=== PATIENT | male | born 1990 | race American Indian/Alaskan Native ===

== ENCOUNTER 2020-12-19 14:29 | Emergency (ER) | payer MEDICAID ==
--- NOTE | 2020-12-19 14:52 | Event Note ---
ED Screening Note Date of service: 12/19/20 Time: 14:51 ED Screening Note: Patient has a history of HIV and has been noncompliant with his meds since the beginning of this month. He presents to the ER today with complaints of generalized body aches, generalized weakness, diarrhea, cough, shortness of breath and chills off and on for the past 2 weeks but has been getting worse. Patient vital signs show that he is tachycardic with a heart rate of 149 He appears ill, and uncomfortable and pale This initial assessment/diagnostic orders/clinical plan/treatment(s) is/are subject to change based on patients health status, clinical progression and re- assessment by fellow clinical providers in the ED. Further treatment and workup at subsequent clinical providers discretion. Patient/guardian urged not to elope from the ED as their condition may be serious if not clinically assessed and ma naged. Initial orders include: labs including blood cultures, chest x-ray, EKG and lactic acid
--- NOTE | 2020-12-19 15:23 | XRay Report ---
CHEST 1 VIEW 12/19/2020 3:00 PM INDICATION / CLINICAL INFORMATION: Shortness of breath. COMPARISON: None available. FINDINGS: SUPPORT DEVICES: None. HEART / MEDIASTINUM: No significant abnormality. LUNGS / PLEURA: No significant pulmonary or pleural abnormality. No pneumothorax. ADDITIONAL FINDINGS: No significant additional findings. IMPRESSION: No acute cardiopulmonary abnormality. Signer Name: Tylor Sandoval MD Signed: 12/19/2020 3:19 PM Workstation Name: [id number]
[2020-12-19] MEDS ORDERED: MORPHINE 4 MG/1 ML INJ ONE (16:00)
[2020-12-19] MEDS ORDERED: SODIUM CHLORIDE 0.9% 1000 ML 0 ML ONE (16:00)
[2020-12-19] MEDS ORDERED: ONDANSETRON 4 MG/2 ML INJ ONE (16:01)
[2020-12-19 16:03] LABS: Alanine Aminotransferase 41 units/L (7-56); Albumin 2.9 g/dL (3.9-5); BUN/Creatinine Ratio 23; Blood Urea Nitrogen 37 mg/dL (9-20); Calcium 9.1 mg/dL (8.4-10.2); Hemolysis Index 3
[2020-12-19 16:19] LABS: Hemoglobin 13.6 gm/dl (11.8-15.2); Mean Corpuscular HGB Conc 34 % (32-34); Mean Corpuscular Volume 97 fl (84-94); Platelet Count 302 K/mm3 (140-440); Red Blood Count 4.12 M/mm3 (3.65-5.03); Red Cell Distribution Width 14.1 % (13.2-15.2)
[2020-12-19] MEDS ORDERED: SODIUM CHLORIDE 0.9% 1000 ML 1,000 ML IV ONE ×2 (16:24→18:48)
--- NOTE | 2020-12-19 17:07 | Emergency Department Report ---
ED ENT HPI - General Chief complaint: Weakness Stated complaint: GENERAL BODY PAIN Time Seen by Provider: 12/19/20 16:09 Source: patient Mode of arrival: Wheelchair Limitations: No Limitations - History of Present Illness Initial comments: 30-year-old male, history of HIV and asthma, presents to ED with complaint of mouth and gum pain x2 weeks. Patient states all of his teeth hurt and all of his gums are swollen; patient states this started Easter weekend. Patient states he called his infectious disease physician at [facility] who told him to come in to the office, however he has yet to go there. Patient states he could not find a ride, so he decided to call EMS to bring him to the ER today. Patient states he is been unable to take his HIV medications for the last 2 weeks because of the pain to his teeth and gums. Patient denies any difficulty swallowing. Patient denies sore throat. Patient denies fever. MD complaint: other -: week(s) (2) Location: other (all teeth and gums) Severity: moderate Quality: aching Consistency: constant Improves with: none Worsens with: eating Context- Dental: poor dental care (last dentist appt more than 5 yrs ago) - Related Data Previous Rx's Medication Instructions Recorded Last Taken Type Chlorhexidine Mouthwash [Peridex] 15 ml MM BID #1 bottle 12/19/20 Unknown Rx Clindamycin [Clindamycin CAP] 300 mg PO Q8H #21 cap 12/19/20 Unknown Rx Allergies Allergy/AdvReac Type Severity Reaction Status Date / Time No Known Allergies Allergy Unverified 12/19/20 14:49 ED Dental HPI - General Chief complaint: Weakness Stated complaint: GENERAL BODY PAIN Time Seen by Provider: 12/19/20 16:09 Source: patient Mode of arrival: Wheelchair Limitations: No Limitations - Related Data Previous Rx's Medication Instructions Recorded Last Taken Type Chlorhexidine Mouthwash [Peridex] 15 ml MM BID #1 bottle 12/19/20 Unknown Rx Clindamycin [Clindamycin CAP] 300 mg PO Q8H #21 cap 12/19/20 Unknown Rx Allergies Allergy/AdvReac Type Severity Reaction Status Date / Time No Known Allergies Allergy Unverified 12/19/20 14:49 ED Review of Systems ROS: Stated complaint: GENERAL BODY PAIN Other details as noted in HPI Comment: All other systems reviewed and negative Constitutional: chills. denies: fever ENT: dental pain. denies: throat pain Respiratory: cough, shortness of breath Gastrointestinal: diarrhea Musculoskeletal: myalgia ED Past Medical Hx - Past Medical History Previous Medical History?: Yes Hx HIV: Yes - Medications Home Medications: Home Medications Medication Instructions Recorded Confirmed Last Taken Type Chlorhexidine Mouthwash [Peridex] 15 ml MM BID #1 bottle 12/19/20 Unknown Rx Clindamycin [Clindamycin CAP] 300 mg PO Q8H #21 cap 12/19/20 Unknown Rx ED Physical Exam - General Limitations: No Limitations General appearance: alert, in no apparent distress - Head Head exam: Present: atraumatic, normocephalic - Eye Eye exam: Present: normal appearance, EOMI - ENT ENT exam: Present: other (gingiva appear to be receding from the teeth; gingiva slightly swollen; no bleeding present; no white plaque on tongue; breath in foul-smelling ) - Respiratory Respiratory exam: Present: normal lung sounds bilaterally. Absent: respiratory distress - Cardiovascular Cardiovascular Exam: Present: normal rhythm, tachycardia - GI/Abdominal GI/Abdominal exam: Present: soft. Absent: distended, tenderness - Extremities Exam Extremities exam: Present: normal inspection - Neurological Exam Neurological exam: Present: alert, oriented X3 - Psychiatric Psychiatric exam: Present: normal affect, normal mood - Skin Skin exam: Present: warm, dry, intact, normal color ED Course Vital Signs 12/19/20 12/19/20 12/19/20 14:49 17:51 18:00 Temperature 98.2 F Pulse Rate 149 H 116 H Respiratory 20 27 H Rate Blood Pressure 129/89 Blood Pressure 118/83 [Right] O2 Sat by Pulse 100 100 100 Oximetry 12/19/20 12/19/20 12/19/20 18:30 19:00 19:30 Temperature Pulse Rate 129 H 120 H 115 H Respiratory 22 18 27 H Rate Blood Pressure 129/89 151/109 129/89 Blood Pressure [Right] O2 Sat by Pulse 100 99 98 Oximetry 12/19/20 12/19/20 12/19/20 20:01 20:14 21:01 Temperature 101.8 F H 101.5 F H Pulse Rate 120 H 114 H Respiratory Rate Blood Pressure 124/78 Blood Pressure [Right] O2 Sat by Pulse Oximetry 12/19/20 22:22 Temperature 99.0 F Pulse Rate 96 H Respiratory 18 Rate Blood Pressure Blood Pressure [Right] O2 Sat by Pulse 99 Oximetry - Reevaluation(s) Reevaluation #1: 12/19/20 17:07 I read the triage note in which patient reported to triage nurse and midlevel that he is here with body aches, weakness, diarrhea, cough, and chills for 2 weeks. Patient did not mention any of these things to me. States he was only here because of his teeth and gum pain. When I questioned patient about these other symptoms, patient states he did not tell me about any of those things because he here because of his mouth issues. ED Medical Decision Making - Lab Data Result diagrams: 12/19/20 15:19 12/19/20 15:19 - Radiology Data Radiology results: report reviewed, image reviewed - Medical Decision Making 30-year-old male presents to ED with complaint of pain and soreness to all of his teeth and gums x2 weeks. Patient apparently also reported body aches, weakness, diarrhea. Patient initially tachycardic but afebrile. Patient later spiked a fever here in the ED. lactic acid normal. He was given Motrin. Labs show evidence of some mild acute renal insufficiency. Patient was given 2 L bolus of saline due to this and along with his tachycardia. Patient originally stated that he has been unable to take his HIV medications secondary to pain in his teeth and gums. Patient denied any difficulty swallowing or painful swallowing or sore throat. No evidence of oral thrush on exam. Patient subsequently was proven able to tolerate p.o. by taking p.o. Lorida. After work, patient requested something to eat. He was given a meal tray and ate it in its entirety. After eating the meal tray, patient also requested something addit ional to eat. He was given juice and crackers which he also ate. Fever and tachycardia resolved. Patient will be discharged home at this time. He has been urged to follow-up with a dentist and his infectious disease physicians. Patient will be given prescription for clindamycin and Peridex for treatment of trench mouth. Patient has been advised to restart his HIV medications. He has also been advised to obtain outpatient COVID-19 testing due to his report of viral symptoms. Critical care attestation.: If time is entered above; I have spent that time in minutes in the direct care of this critically ill patient, excluding procedure time. ED Disposition Clinical Impression: Trench mouth, Dehydration, Fever Disposition: DC- TO HOME OR SELFCARE Is pt being admited?: No Condition: Stable Instructions: Dehydration, Adult, [id number], Trench Mouth, Fever, Adult, [id number] Additional Instructions: Outpatient COVID-19 testing is recommended. Quarantine as needed. Prescriptions: Clindamycin [Clindamycin CAP] 300 mg PO Q8H #21 cap Chlorhexidine Mouthwash [Peridex] 15 ml MM BID #1 bottle Referrals: [facility] [Other] - 3-5 Days PRIMARY CARE, [Referring] - 3-5 Days Time of Disposition: 22:30
[2020-12-19 17:23] LABS: Anisocytosis Few; Giant Platelets Rare; Total Cells Counted 100
[2020-12-19] MEDS ORDERED: HYDROcodone/ACETAMINOPHEN 5-325 MG TAB PO ONE (18:48)
[2020-12-19 20:02] VITALS: BP 124/78
[2020-12-19] MEDS ORDERED: IBUPROFEN 800 MG TAB PO ONE (20:14)
[2020-12-19 20:44] LABS: Bacteria,Urine 1+ /HPF (Negative); Bilirubin,Urine NEG (Negative); Blood,Urine NEG (Negative); Color,Urine Yellow (Yellow); Mucus,Urine FEW /HPF
[2020-12-19 20:45] LABS: Protein,Urine >500 mg/dL (Negative)
--- NOTE | 2020-12-21 13:38 | Electrocardiograph Report ---
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
== END 2020-12-19 22:51 | disposition home or self-care (01) ==
LOC: ED 14:29
DX: E86.0 Dehydration (principal); A69.1 Other Vincent's infections; R50.9 Fever, unspecified; Z79.2 Long term (current) use of antibiotics; Z79.899 Other long term (current) drug therapy; Z21 Asymptomatic human immunodeficiency virus [HIV] infection status
CPT/HCPCS: 36415; 71045; 80053; 81001; 82140; 83690; 83735; 84484; 85007; 85025; 87040; 93005; 96360; 96361; 99284; J2270; J7030; J2405

== ENCOUNTER 2021-06-21 08:31 | Inpatient (IN) | payer MEDICAID ==
[2021-06-21] MEDS ORDERED: ROCURONIUM 50 MG/5 ML INJ IV ONE (08:36)
[2021-06-21] MEDS ORDERED: ETOMIDATE 20 MG/10 ML INJ IV ONE (08:36)
[2021-06-21] MEDS ORDERED: cefTRIAXone/NS 2 GM/100 ML 2 GM/100 ML BAG IV ONE (09:05)
[2021-06-21] MEDS ORDERED: SODIUM CHLORIDE 0.9% 1000 ML IV SOLN IV ONE (09:05)
[2021-06-21] MEDS ORDERED: methylPREDNISolone Sod Succinate 125 MG/2 ML INJ IV ONE (09:07)
[2021-06-21] MEDS ORDERED: NORepinephrine/NS 4 MG-250 ML 4 MG/250 ML BAG IV ONE (09:10)
[2021-06-21] MEDS ORDERED: DOPamine/D5W 800 MG/250 ML 800 MG/250 ML BAG IV ONE ×2 (09:10→09:16)
[2021-06-21 09:11] LABS: ABG Base Excess -18.2 mmol/L (-2.0-3.0); ABG Methemoglobin 0.6 % (0.0-1.5); ABG PCO2 63.3 mm Hg; ABG PO2 99.9 mm Hg (80.0-90.0)
--- NOTE | 2021-06-21 09:12 | Emergency Department Report ---
ED Altered Mental Status HPI - General Chief Complaint: Altered Mental Status Stated Complaint: STROKE Time Seen by Provider: 06/21/21 09:04 Source: EMS Mode of arrival: Stretcher Limitations: Altered Mental Status - History of Present Illness Initial Comments: Patient is 30 years old male with history of HIV possibly AIDS. 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 Patient brought from home via EMS for evaluation of altered mental status since yesterday. EMS stated that family stated that he was doing well until yesterday morning when he became more unresponsive and confused. Family denied any fever or chills. Upon arrival to the ER patient with agonal breathing, GCS of 3.no gag reflex. Patient is tachycardic with a blood pressure of 60/40. Patient immediately intubated by me using a glidscope. I immediately placed a right femoral central line for resuscitation as patient has a difficult access also. Sepsis protocol immediately initiated and patient received 30 mL/kg of normal saline. Given patient history of meningitis patient received Rocephin, vancomycin, fluconazole and acyclovir. Patient also received steroid. MD Complaint: altered mental status, decreased responsiveness Severity: severe Consistency of Symptoms: getting worse Context: history of similar presen - Related Data Previous Rx's Medication Instructions Recorded Last Taken Type Chlorhexidine Mouthwash [Peridex] 15 ml MM BID #1 bottle 12/19/20 Unknown Rx Clindamycin [Clindamycin CAP] 300 mg PO Q8H #21 cap 12/19/20 Unknown Rx Allergies Allergy/AdvReac Type Severity Reaction Status Date / Time No Known Allergies Allergy Unverified 12/19/20 14:49 ED Review of Systems ROS: Stated complaint: STROKE Other details as noted in HPI Comment: Unobtainable due to pts medical conditions ED Past Medical Hx - Past Medical History Hx CVA: Yes Hx HIV: Yes Additional medical history: fungal meningitis - Social History Smoking Status: Current Every Day Smoker Substance Use Type: Alcohol - Medications Home Medications: Home Medications Medication Instructions Recorded Confirmed Last Taken Type Chlorhexidine Mouthwash [Peridex] 15 ml MM BID #1 bottle 12/19/20 Unknown Rx Clindamycin [Clindamycin CAP] 300 mg PO Q8H #21 cap 12/19/20 Unknown Rx ED Physical Exam - General Limitations: Altered Mental Status General appearance: obtunded - Head Head exam: Present: atraumatic, normal inspection - Eye Pupils: Present: miosis - ENT ENT exam: Present: mucous membranes dry - Neck Neck exam: Present: normal inspection. Absent: tenderness, meningismus - Respiratory Respiratory exam: Present: normal lung sounds bilaterally - Cardiovascular Cardiovascular Exam: Present: tachycardia - GI/Abdominal GI/Abdominal exam: Present: soft. Absent: distended, tenderness - Neurological Exam Neurological exam: Present: altered - Skin Skin exam: Present: warm, dry, normal color - Assessment Assessment Interval: Baseline - Level of Consciousness 1a. Level of Consciousness: coma/unresponsive - LOC Questions 1b. LOC Questions: answers no questions correctly - LOC Command 1c. LOC Commands: performs no tasks correctly - Best Gaze 2. Best Gaze: forced deviation - Visual 3. Visual: no visual loss - Facial Palsy 4. Facial Palsy: normal symmetrical movement - Motor Arm 5a. Motor Arm Left: no gravity effort 5b. Motor Arm Right: no gravity effort - Motor Leg 6a. Motor Leg Left: no gravity effort 6b. Motor Leg Right: no gravity effort - Limb Ataxia 7. Limb Ataxia: absent - Sensory 8. Sensory: coma/unresponsive - Best Language 9. Best Language: coma/unresponsive - Dysarthria 10. Dysarthria: intubated or other barrier - Extinction and Inattention 11. Extinction/Inattention: no abnormality - Scoring Total Score: 26 Stroke Severity: Severe Stroke ED Course Vital Signs 06/21/21 06/21/21 09:34 12:10 Pulse Rate 140 H 138 H Respiratory 3 L 0 L Rate O2 Sat by Pulse 98 96 Oximetry - Reevaluation(s) Reevaluation #1: 06/21/21 10:25 Patient blood pressure improved with normal saline and dopamine and Levophed. Reevaluation #2: 06/21/21 11:32 Patient remained critical however his blood pressure improved. I discussed the patient with his mother, informed that patient condition is very critical. 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 She also added that he was doing well until yesterday morning when he became more confused. Reevaluation #3: 06/21/21 13:16 I was called to the patient room. Nurse advised patient has no pulse. ACLS protocol immediately initiated. Patient received epinephrine, sodium bicarbonate, dextrose. After several rounds of CPR patient rhythm change from asystole to ventricular fibrillation. Patient received 300 J and a 360 J and amiodarone 300 mg IV. Patient rhythm returned to asystole. Unfortunately patient remained in asystole. Patient pronounced at 1:09 PM. For further information please refer to code sheets. - Central Line Placement Right Femoral Consent Obtained: emergent situation Time Out Performed: Yes Patient Placed on Monitor/Pulse Ox: Yes MD Prep: mask, gown, gloves Central Line Prep: Povidone-Iodine 1%, Chlorhexidine scrub, sterile drapes appli ed Local Anesthesia Used: Lidocaine 2% Central Line Lumen Inserted: triple Reason for Insertion: Volume Resuscitation Central Line Position: good blood return, all ports aspirated, flus, sutured in place with 2-0 Dressing Applied: Tegaderm, sterile gauze/tape Patient Tolerated Procedure: well, no complications Complications: none - Intubation Time Out Performed: Yes Sedative: Etomidate Laryngoscope: Susan Size: 4 ET Tube Size: 7.5 Tube Secured Location: teeth Tube Placement Confirmation: visualized tube passing t, equal breath sounds bilat, no breath sounds over epi, confirmation by capnometr Patient Tolerated Procedure: well, no complications Intubation Complications: none - Lumbar Puncture Consent Obtained: emergent situation Time Out Performed: Yes Indication for Procedure: change in mental status Patient Position: left lateral decubitus Skin Prep: Povidone-Iodine 1% Local Anesthetic Used: Lidocaine 1% Spinal Needle Gauge: 20G Interspace Used: L4-L5 Fluid Initially Obtained: clear Complications: none Patient Tolerated Procedure: well, no complications - Lab Data Result diagrams: 06/21/21 09:52 06/21/21 09:52 Lab Results 06/21/21 06/21/21 06/21/21 Range/Units 08:50 09:52 09:52 WBC 2.3 L (4.5-11.0) K/mm3 RBC 2.68 L (3.65-5.03) M/mm3 Hgb 8.9 L (11.8-15.2) gm/dl Hct 26.4 L (35.5-45.6) % MCV 98 H (84-94) fl MCH 33 H (28-32) pg MCHC 34 (32-34) % RDW 15.0 (13.2-15.2) % Seg Neutrophils % Route Delivery Driver PT (12.2-14.9) Sec. INR (0.87-1.13) APTT (24.2-36.6) Sec. ABG pH 6.963 L* (7.350-7.450) pH Units ABG pCO2 63.3 mm Hg ABG pO2 99.9 H (80.0-90.0) mm Hg ABG HCO3 14.0 L (20.0-26.0) mmol/L ABG O2 Saturation 92.0 L (95.0-99.0) % ABG O2 Content 16.8 (0.0-44) ABG Base Excess -18.2 L (-2.0-3.0) mmol/L ABG Hemoglobin 13.1 L (14.0-18.0) gm/dl ABG Carboxyhemoglobin 1.3 (0.0-5.0) % ABG Methemoglobin 0.6 (0.0-1.5) % Oxyhemoglobin 90.3 L (95.0-99.0) % FiO2 10 % Sodium 139 (137-145) mmol/L Potassium 4.6 (3.6-5.0) mmol/L Chloride 104.6 (98-107) mmol/L Carbon Dioxide 13 L (22-30) mmol/L Anion Gap 26 mmol/L BUN 57 H (9-20) mg/dL Creatinine 4.0 H (0.8-1.3) mg/dL Estimated GFR 21 ml/min BUN/Creatinine Ratio 14 % Glucose 124 H (75-100) mg/dL Lactic Acid (0.7-2.0) mmol/L Calcium 6.5 L (8.4-10.2) mg/dL Total Bilirubin (0.1-1.2) mg/dL Direct Bilirubin (0-0.2) mg/dL Indirect Bilirubin mg/dL AST (5-40) units/L ALT (7-56) units/L Alkaline Phosphatase (35-129) units/L Ammonia (25-60) umol/L Total Creatine Kinase (55-170) units/L Troponin T (0.00-0.029) ng/mL Total Protein (6.3-8.2) g/dL Albumin (3.9-5) g/dL Albumin/Globulin Ratio % 06/21/21 06/21/21 06/21/21 Range/Units 09:52 09:52 09:52 WBC (4.5-11.0) K/mm3 RBC (3.65-5.03) M/mm3 Hgb (11.8-15.2) gm/dl Hct (35.5-45.6) % MCV (84-94) fl MCH (28-32) pg MCHC (32-34) % RDW (13.2-15.2) % Seg Neutrophils % PT 17.5 H (12.2-14.9) Sec. INR 1.30 H (0.87-1.13) APTT 43.5 H (24.2-36.6) Sec. ABG pH (7.350-7.450) pH Units ABG pCO2 mm Hg ABG pO2 (80.0-90.0) mm Hg ABG HCO3 (20.0-26.0) mmol/L ABG O2 Saturation (95.0-99.0) % ABG O2 Content (0.0-44) ABG Base Excess (-2.0-3.0) mmol/L ABG Hemoglobin (14.0-18.0) gm/dl ABG Carboxyhemoglobin (0.0-5.0) % ABG Methemoglobin (0.0-1.5) % Oxyhemoglobin (95.0-99.0) % FiO2 % Sodium (137-145) mmol/L Potassium (3.6-5.0) mmol/L Chloride (98-107) mmol/L Carbon Dioxide (22-30) mmol/L Anion Gap mmol/L BUN (9-20) mg/dL Creatinine (0.8-1.3) mg/dL Estimated GFR ml/min BUN/Creatinine Ratio % Glucose (75-100) mg/dL Lactic Acid 9.70 H* (0.7-2.0) mmol/L Calcium (8.4-10.2) mg/dL Total Bilirubin 0.60 (0.1-1.2) mg/dL Direct Bilirubin 0.6 H (0-0.2) mg/dL Indirect Bilirubin 0.0 mg/dL AST 111 H (5-40) units/L ALT 36 (7-56) units/L Alkaline Phosphatase 96 (35-129) units/L Ammonia (25-60) umol/L Total Creatine Kinase 670 H (55-170) units/L Troponin T 0.022 (0.00-0.029) ng/mL Total Protein 6.3 (6.3-8.2) g/dL Albumin 1.6 L (3.9-5) g/dL Albumin/Globulin Ratio 0.3 % 06/21/21 Range/Units 09:52 WBC (4.5-11.0) K/mm3 RBC (3.65-5.03) M/mm3 Hgb (11.8-15.2) gm/dl Hct (35.5-45.6) % MCV (84-94) fl MCH (28-32) pg MCHC (32-34) % RDW (13.2-15.2) % Seg Neutrophils % PT (12.2-14.9) Sec. INR (0.87-1.13) APTT (24.2-36.6) Sec. ABG pH (7.350-7.450) pH Units ABG pCO2 mm Hg ABG pO2 (80.0-90.0) mm Hg ABG HCO3 (20.0-26.0) mmol/L ABG O2 Saturation (95.0-99.0) % ABG O2 Content (0.0-44) ABG Base Excess (-2.0-3.0) mmol/L ABG Hemoglobin (14.0-18.0) gm/dl ABG Carboxyhemoglobin (0.0-5.0) % ABG Methemoglobin (0.0-1.5) % Oxyhemoglobin (95.0-99.0) % FiO2 % Sodium (137-145) mmol/L Potassium (3.6-5.0) mmol/L Chloride (98-107) mmol/L Carbon Dioxide (22-30) mmol/L Anion Gap mmol/L BUN (9-20) mg/dL Creatinine (0.8-1.3) mg/dL Estimated GFR ml/min BUN/Creatinine Ratio % Glucose (75-100) mg/dL Lactic Acid (0.7-2.0) mmol/L Calcium (8.4-10.2) mg/dL Total Bilirubin (0.1-1.2) mg/dL Direct Bilirubin (0-0.2) mg/dL Indirect Bilirubin mg/dL AST (5-40) units/L ALT (7-56) units/L Alkaline Phosphatase (35-129) units/L Ammonia 68.0 H (25-60) umol/L Total Creatine Kinase (55-170) units/L Troponin T (0.00-0.029) ng/mL Total Protein (6.3-8.2) g/dL Albumin (3.9-5) g/dL Albumin/Globulin Ratio % - Radiology Data Radiology results: report reviewed - Medical Decision Making Patient is 30 years old male with history of HIV possibly AIDS. 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 Patient brought from home via EMS for evaluation of altered mental status since yesterday. EMS stated that family stated that he was doing well until yesterday morning when he became more unresponsive and confused. Family denied any fever or chills. Upon arrival to the ER patient with agonal breathing, GCS of 3.no gag reflex. Patient is tachycardic with a blood pressure of 60/40. Patient immediately intubated by me using a glidscope. I immediately placed a right femoral central line for resuscitation as patient has a difficult access also. Sepsis protocol immediately initiated and patient received 30 mL/kg of normal saline. Given patient history of meningitis patient received Rocephin, vancomycin, fluconazole and acyclovir. Patient also received steroid. CT brain is negative for acute finding. Lumbar puncture showed a clear CSF. Labs reviewed and showed a lactic acid of 9.7. Creatinine is 4 and BUN is. Patient creatinine was 1.6 few months ago. Patient is in acute renal failure most likely secondary to sepsis. Blood pressure improved after 3 L of normal saline. Patient currently on a Levophed drip and dopamine drip. I discussed the patient with Dr. Grier, he accepted the patient to be admitted to the intensive care unit. I discussed the patient with Dr. Alejandra, she advised to admit the patient to Dr. Fajardo for further management. Critical Care Time: Yes Critical care time in (mins) excluding proc time.: 60 Critical care attestation.: If time is entered above; I have spent that time in minutes in the direct care of this critically ill patient, excluding procedure time. ED Disposition Clinical Impression: Altered mental status, Suspected infectious meningitis, Acute renal failure, Acute respiratory failure, Cardiopulmonary arrest Disposition: 20 Is pt being admited?: Yes Condition: Stable
[2021-06-21 09:13] LABS: ABG PH 6.963 pH Units (7.350-7.450)
[2021-06-21] MEDS ORDERED: MIDAZOLAM 2 MG/2 ML INJ IV PRN (09:18)
[2021-06-21] MEDS ORDERED: MIDAZOLAM 100 MG in SODIUM CHLORIDE 0.9% 80 ML IV ONE (09:18)
[2021-06-21] MEDS ORDERED: SODIUM CHLORIDE 0.9% IV ONE (09:30)
[2021-06-21] MEDS ORDERED: ACYCLOVIR IV ONE (09:30)
[2021-06-21] MEDS ORDERED: VANCOMYCIN 1,250 MG in SODIUM CHLORIDE 0.9% 500 ML 500 ML IV ONE (09:30)
[2021-06-21] MEDS ORDERED: SODIUM BICARB 8.4% 50 MEQ/50 ML SYRINGE IV ONE (09:34)
[2021-06-21] MEDS ORDERED: VANCOMYCIN 1,250 MG in SODIUM CHLORIDE 0.9% 250ML 250 ML IV ONE (10:00)
[2021-06-21] MEDS ORDERED: VANCOMYCIN PHARMACY TO DOSE IV SCH (10:00)
[2021-06-21] MEDS ORDERED: FLUCONAZOLE 200 MG 200 MG/100 ML BAG IV ONE (10:00)
[2021-06-21] MEDS ORDERED: NORepinephrine/NS 8 MG-250 ML 8 MG/250 ML INFUS..BTL IV SCH (10:00)
[2021-06-21 10:06] LABS: Hematocrit 26.4 % (35.5-45.6); Hemoglobin 8.9 gm/dl (11.8-15.2); Mean Corpuscular HGB Conc 34 % (32-34); Mean Corpuscular Volume 98 fl (84-94); Red Blood Count 2.68 M/mm3 (3.65-5.03)
--- NOTE | 2021-06-21 10:16 | XRay Report ---
XR chest 1V ap INDICATION / CLINICAL INFORMATION: ET TUBE PLACEMENT. COMPARISON: 12/19/2020 FINDINGS: SUPPORT DEVICES: Endotracheal tube terminates in satisfactory position in the midtrachea. HEART /PULMONARY VASCULATURE: No significant abnormality. LUNGS / PLEURA: Bilateral airspace opacities are present, most pronounced within the upper lungs. The re is dense airspace consolidation in the left upper lobe. No sizable pleural effusion. No pneumothor ax. IMPRESSION: 1. Bilateral pulmonary airspace disease, greatest within the left upper lung, concerning for pneumon ia. 2. Satisfactory position of endotracheal tube. Signer Name: Nba Marquez MD Signed: 06/21/2021 10:11 AM Workstation Name: [id number]
[2021-06-21 10:21] LABS: INR 1.3 (0.87-1.13)
[2021-06-21 10:22] LABS: Partial Thromboplastin Time 43.5 Sec. (24.2-36.6)
[2021-06-21 10:23] LABS: Calcium 6.5 mg/dL (8.4-10.2)
[2021-06-21 10:28] LABS: Albumin 1.6 g/dL (3.9-5); Bilirubin,Direct 0.6 mg/dL (0-0.2)
--- NOTE | 2021-06-21 10:46 | Cat Scan Report ---
CT HEAD WITHOUT CONTRAST INDICATION / CLINICAL INFORMATION: Altered Mental Status. TECHNIQUE: Axial imaging performed from the skull apex through the skull base without the use of cont rast. Sagittal and coronal reformatted images. All CT scans at this location are performed using CT dose reduction for ALARA by means of automated exposure control. COMPARISON: None available. FINDINGS: CEREBRAL PARENCHYMA: No acute parenchymal abnormality or territorial infarct is identified. Chronic f ocal lacunar infarcts are noted in the left subinsular region and left basal ganglia. There are mild chronic white matter changes bilaterally. HEMORRHAGE: None. EXTRA-AXIAL SPACES: Normal in size and morphology for the patient's age. VENTRICULAR SYSTEM: Ventricular size appears slightly prominent throughout. Correlation with previous studies would be useful if available. MIDLINE SHIFT OR HERNIATION: None. CEREBELLUM / BRAINSTEM: No significant abnormality. CALVARIUM: No significant abnormality. ORBITS: Normal as visualized. PARANASAL SINUSES / MASTOID AIR CELLS: Normal as visualized. SOFT TISSUES of HEAD: No significant abnormality. ADDITIONAL FINDINGS: None. IMPRESSION: No acute intracranial abnormality is appreciated. Chronic white matter changes. Chronic focal infarcts in the left gangliocapsular region. Signer Name: Kalen Johnson Jr, MD Signed: 06/21/2021 10:41 AM Workstation Name: [id number]
[2021-06-21 12:52] LABS: Glucose,CSF 99 mg/dL
[2021-06-21 14:09] VITALS: BP 58/29
[2021-06-21 17:12] LABS: Total Cells Counted 100
[2021-06-21 17:14] LABS: Band Neutrophils # (Manual) 0.1 K/mm3; Myelocytes # (Manual) 0.4 K/mm3
[2021-06-21 17:20] LABS: Platelet Estimate Consistent w Auto
[2021-06-21 17:21] LABS: Platelet Count 129 K/mm3 (140-440)
--- NOTE | 2021-06-21 18:00 | History and Physical Report ---
History of Present Illness Date of examination: 06/21/21 Date of admission: 06/21/21 11:46 Chief complaint: Altered sensorium since yesterday morning History of present illness: History of Present Illness Patient is 30 years old male with history of HIV possibly AIDS. 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 Patient brought from home via EMS for evaluation of altered mental status since yesterday. EMS stated that family stated that he was doing well until yesterday morning when he became more unresponsive and confused. Family denied any fever or chills. Upon arrival to the ER patient with agonal breathing, GCS of 3.no gag reflex. Patient is tachycardic with a blood pressure of 60/40. Patient immediately intubated by ED physician Dr Wright using a glidscope. ED physician placed a right femoral central line for resuscitation as patient has a difficult access also. Sepsis protocol immediately initiated and patient received 30 mL/kg of normal saline. Given patient history of meningitis patient received Rocephin, vancomycin, fluconazole and acyclovir. Patient also received steroid. MD Complaint: altered mental status, decreased responsiveness Severity: severe Consistency of Symptoms: getting worse Context: history of similar presen - Past Medical History --CVA: Yes --HIV: Yes --Additional medical history: fungal meningitis - Social History --Smoking Status: Current Every Day Smoker --Substance Use Type: Alcohol - Medications --Home Medications: Home Medications Medication Instructions Recorded Confirmed Last Taken Type Chlorhexidine Mouthwash [Peridex] 15 ml MM BID #1 bottle 12/19/20 Unknown Rx Clindamycin [Clindamycin CAP] 300 mg PO Q8H #21 cap 12/19/20 Unknown Rx Review of Systems ROS: Stated complaint: STROKE Other details as noted in HPI Comment: Unobtainable due to pts medical conditions Medications and Allergies Allergies Allergy/AdvReac Type Severity Reaction Status Date / Time No Known Allergies Allergy Unverified 12/19/20 14:49 Home Medications Medication Instructions Recorded Confirmed Last Taken Type Chlorhexidine Mouthwash [Peridex] 15 ml MM BID #1 bottle 12/19/20 Unknown Rx Clindamycin [Clindamycin CAP] 300 mg PO Q8H #21 cap 12/19/20 Unknown Rx Active Meds: Active Medications Dopamine HCl/Dextrose (Intropin Drip 800 Mg/D5w 250 Ml) 800 mg in 250 mls @ 2.211 mls/hr IV TITR ONE; Protocol Stop: 06/26/21 02:20 Last Admin: 06/21/21 09:16 Dose: 2 mcg/kg/min, 2.211 mls/hr Documented by: NORepinephrine/NS 8 MG-250 ML (Norepinephrine/Ns 8 Mg-250 Ml (Double Conc)) 8 mg in 250 mls @ 3.75 mls/hr IV TITRATE TRINITY; Protocol Last Admin: 06/21/21 10:00 Dose: 30 mcg/min, 56.25 mls/hr Documented by: Midazolam HCl 100 mg/ Sodium (Chloride) 100 mls @ 1 mls/hr IV TITR ONE; Protocol Stop: 06/25/21 13:17 Last Admin: 06/21/21 11:54 Dose: 1 mg/hr, 1 mls/hr Documented by: Midazolam HCl (Midazolam 2 Mg/2 Ml Inj) 2 mg IV Q10MIN PRN PRN Reason: Sedation Exam - Physical Exam Narrative exam: Patient is intubated - Constitutional Vitals: Temp Pulse Resp BP Pulse Ox 66 0 L 58/29 88 06/21/21 13:00 06/21/21 12:10 06/21/21 13:00 06/21/21 13:10 General appearance: Present: severe distress, cachectic, disheveled - EENT Eyes: Present: PERRL ENT: hearing intact, clear oral mucosa - Neck Neck: Present: supple, normal ROM - Respiratory Respiratory effort: normal Respiratory: bilateral: CTA - Cardiovascular Heart rate: 78 Rhythm: regular Heart Sounds: Present: S1 & S2. Absent: rub, click - Extremities Extremities: pulses symmetrical, No edema Peripheral Pulses: within normal limits - Abdominal General gastrointestinal: Present: soft, non-tender, non-distended, normal bowel sounds Male genitourinary: Present: normal - Integumentary Integumentary: Present: clear, warm, dry - Psychiatric Psychiatric: other (Unresponsive) - Neurologic Neurologic: other (Unresponsive) - Allied Health Allied health notes reviewed: nursing, case management HEART Score - HEART Score Troponin: Troponin T 0.022 ng/mL (0.00-0.029) 06/21/21 09:52 Results - Labs CBC & Chem 7: 06/21/21 09:52 06/21/21 09:52 Labs: Laboratory Last Values WBC 2.3 K/mm3 (4.5-11.0) L 06/21/21 09:52 RBC 2.68 M/mm3 (3.65-5.03) L 06/21/21 09:52 Hgb 8.9 gm/dl (11.8-15.2) L 06/21/21 09:52 Hct 26.4 % (35.5-45.6) L 06/21/21 09:52 MCV 98 fl (84-94) H 06/21/21 09:52 MCH 33 pg (28-32) H 06/21/21 09:52 MCHC 34 % (32-34) 06/21/21 09:52 RDW 15.0 % (13.2-15.2) 06/21/21 09:52 Plt Count 129 K/mm3 (140-440) L 06/21/21 09:52 Add Manual Diff Complete 06/21/21 09:52 Total Counted 100 06/21/21 09:52 Seg Neutrophils % Icebox Man 06/21/21 09:52 Seg Neuts % (Manual) 2.0 % (40.0-70.0) L 06/21/21 09:52 Band Neutrophils % 6.0 % 06/21/21 09:52 Lymphocytes % (Manual) 73.0 % (13.4-35.0) H 06/21/21 09:52 Monocytes % (Manual) 2.0 % (0.0-7.3) 06/21/21 09:52 Myelocytes % 17.0 % 06/21/21 09:52 Nucleated RBC % 2.0 % (0.0-0.9) H 06/21/21 09:52 Seg Neutrophils # Man 0.0 K/mm3 (1.8-7.7) L 06/21/21 09:52 Band Neutrophils # 0.1 K/mm3 06/21/21 09:52 Lymphocytes # (Manual) 1.7 K/mm3 (1.2-5.4) 06/21/21 09:52 Abs React Lymphs (Man) 0.0 K/mm3 06/21/21 09:52 Monocytes # (Manual) 0.0 K/mm3 (0.0-0.8) 06/21/21 09:52 Eosinophils # (Manual) 0.0 K/mm3 (0.0-0.4) 06/21/21 09:52 Basophils # (Manual) 0.0 K/mm3 (0.0-0.1) 06/21/21 09:52 Metamyelocytes # 0.0 K/mm3 06/21/21 09:52 Myelocytes # 0.4 K/mm3 06/21/21 09:52 Promyelocytes # 0.0 K/mm3 06/21/21 09:52 Blast Cells # 0.0 K/mm3 06/21/21 09:52 WBC Morphology Not Reportable 06/21/21 09:52 Hypersegmented Neuts Not Reportable 06/21/21 09:52 Hyposegmented Neuts Not Reportable 06/21/21 09:52 Hypogranular Neuts Not Reportable 06/21/21 09:52 Smudge Cells Not Reportable 06/21/21 09:52 Toxic Granulation Not Reportable 06/21/21 09:52 Toxic Vacuolation Not Reportable 06/21/21 09:52 Dohle Bodies Not Reportable 06/21/21 09:52 Pelger-Huet Anomaly Not Reportable 06/21/21 09:52 Eric Rods Not Reportable 06/21/21 09:52 Platelet Estimate Consistent w auto 06/21/21 09:52 Clumped Platelets Not Reportable 06/21/21 09:52 Plt Clumps, EDTA Not Reportable 06/21/21 09:52 Large Platelets Not Reportable 06/21/21 09:52 Giant Platelets Not Reportable 06/21/21 09:52 Platelet Satelliting Not Reportable 06/21/21 09:52 Plt Morphology Comment Not Reportable 06/21/21 09:52 RBC Morphology Not Reportable 06/21/21 09:52 Dimorphic RBCs Not Reportable 06/21/21 09:52 Polychromasia 1+ 06/21/21 09:52 Hypochromasia Not Reportable 06/21/21 09:52 Poikilocytosis Not Reportable 06/21/21 09:52 Anisocytosis Not Reportable 06/21/21 09:52 Microcytosis Not Reportable 06/21/21 09:52 Macrocytosis Not Reportable 06/21/21 09:52 Spherocytes Not Reportable 06/21/21 09:52 Pappenheimer Bodies Not Reportable 06/21/21 09:52 Sickle Cells Not Reportable 06/21/21 09:52 Target Cells Not Reportable 06/21/21 09:52 Tear Drop Cells Not Reportable 06/21/21 09:52 Ovalocytes Not Reportable 06/21/21 09:52 Helmet Cells Not Reportable 06/21/21 09:52 [place] Bodies Not Reportable 06/21/21 09:52 [place] Rings Not Reportable 06/21/21 09:52 [place] Cells Not Reportable 06/21/21 09:52 Bite Cells Not Reportable 06/21/21 09:52 Crenated Cell Not Reportable 06/21/21 09:52 Elliptocytes Not Reportable 06/21/21 09:52 Acanthocytes (Spur) Not Reportable 06/21/21 09:52 Rouleaux Not Reportable 06/21/21 09:52 Hemoglobin C Crystals Not Reportable 06/21/21 09:52 Schistocytes Not Reportable 06/21/21 09:52 Malaria parasites Not Reportable 06/21/21 09:52 Mario Bodies Not Reportable 06/21/21 09:52 Hem Pathologist Commnt No 06/21/21 09:52 PT 17.5 Sec. (12.2-14.9) H 06/21/21 09:52 INR 1.30 (0.87-1.13) H 06/21/21 09:52 APTT 43.5 Sec. (24.2-36.6) H 06/21/21 09:52 ABG pH 6.963 pH Units (7.350-7.450) L* 06/21/21 08:50 ABG pCO2 63.3 mm Hg 06/21/21 08:50 ABG pO2 99.9 mm Hg (80.0-90.0) H 06/21/21 08:50 ABG HCO3 14.0 mmol/L (20.0-26.0) L 06/21/21 08:50 ABG O2 Saturation 92.0 % (95.0-99.0) L 06/21/21 08:50 ABG O2 Content 16.8 (0.0-44) 06/21/21 08:50 ABG Base Excess -18.2 mmol/L (-2.0-3.0) L 06/21/21 08:50 ABG Hemoglobin 13.1 gm/dl (14.0-18.0) L 06/21/21 08:50 ABG Carboxyhemoglobin 1.3 % (0.0-5.0) 06/21/21 08:50 ABG Methemoglobin 0.6 % (0.0-1.5) 06/21/21 08:50 Oxyhemoglobin 90.3 % (95.0-99.0) L 06/21/21 08:50 FiO2 10 % 06/21/21 08:50 Sodium 139 mmol/L (137-145) 06/21/21 09:52 Potassium 4.6 mmol/L (3.6-5.0) 06/21/21 09:52 Chloride 104.6 mmol/L (98-107) 06/21/21 09:52 Carbon Dioxide 13 mmol/L (22-30) L 06/21/21 09:52 Anion Gap 26 mmol/L 06/21/21 09:52 BUN 57 mg/dL (9-20) H 06/21/21 09:52 Creatinine 4.0 mg/dL (0.8-1.3) H 06/21/21 09:52 Estimated GFR 21 ml/min 06/21/21 09:52 BUN/Creatinine Ratio 14 % 06/21/21 09:52 Glucose 124 mg/dL (75-100) H 06/21/21 09:52 Lactic Acid 7.00 mmol/L (0.7-2.0) H* 06/21/21 12:20 Calcium 6.5 mg/dL (8.4-10.2) L 06/21/21 09:52 Total Bilirubin 0.60 mg/dL (0.1-1.2) 06/21/21 09:52 Direct Bilirubin 0.6 mg/dL (0-0.2) H 06/21/21 09:52 Indirect Bilirubin 0.0 mg/dL 06/21/21 09:52 AST 111 units/L (5-40) H 06/21/21 09:52 ALT 36 units/L (7-56) 06/21/21 09:52 Alkaline Phosphatase 96 units/L (35-129) 06/21/21 09:52 Ammonia 68.0 umol/L (25-60) H 06/21/21 09:52 Total Creatine Kinase 670 units/L (55-170) H 06/21/21 09:52 Troponin T 0.022 ng/mL (0.00-0.029) 06/21/21 09:52 Total Protein 6.3 g/dL (6.3-8.2) 06/21/21 09:52 Albumin 1.6 g/dL (3.9-5) L 06/21/21 09:52 Albumin/Globulin Ratio 0.3 % 06/21/21 09:52 CSF Glucose 99 mg/dL 06/21/21 11:00 CSF Total Protein 32 mg/dL 06/21/21 11:00 Microbiology: Microbiology 06/21/21 11:00 Cerebral Spinal Fluid CSF Culture - Preliminary 06/21/21 11:00 Cerebral Spinal Fluid Cryptococcal Antigen - Final 06/21/21 09:52 Peripheral/Venous Blood Culture - Preliminary Culture in Progress 06/21/21 09:52 Peripheral/Venous Blood Culture - Preliminary Culture in Progress - Imaging and Cardiology CT scan - chest: report reviewed Imaging and Cardiology: Chest x-ray Bilateral pulmonary airspace disease greatest within the left upper lung concerning for pneumonia Satisfactory position of endotracheal tube CT of the head No acute intracranial abnormalities appreciated Chronic white matter changes Chronic focal infarcts in the left ganglial capsular region Assessment and Plan Assessment and plan: Critical care statement The high probability OF a clinically significant sudden or life-threatening deterioration of the cardiorespiratory system and endocrine system required my full and direct attention, intervention and postoperative management. The aggregate critical care time was 40 minutes. The time is in addition to time spent performing reported procedures but includes the followin: Data review and interpretation 2: Patient assessment and monitoring of vital signs 3: Documentation 4:: Medication orders and management Advance Directives: Yes (Full code) VTE prophylaxis?: Chemical Plan of care discussed with patient/family: Yes - Patient Problems (1) Acute respiratory failure with hypoxia Current Visit: Yes Status: Acute Plan to address problem: Patient intubated on and on vent support Continue vent support Critical care consult Prognosis is poor (2) Sepsis with hypotension Current Visit: Yes Status: Acute Plan to address problem: Patient is septic probably secondary to bilateral pneumonia Patient is hypotensive Lactic acid is high Patient to be treated with broad-spectrum antibiotics cefepime and vancomycin. Prognosis is poor. (3) Acute encephalopathy Current Visit: Yes Status: Acute Plan to address problem: Secondary to sepsis and hypoxia Broad-spectrum IV antibiotics ID consult (4) Bilateral pneumonia Current Visit: Yes Status: Acute Plan to address problem: Differential diagnosis of community-acquired pneumonia versus Covid pneumonia Patient was treated with broad-spectrum IV antibiotics Coronavirus PCR in a.m. Prognosis very poor (5) VIVEK (acute kidney injury) Current Visit: Yes Status: Acute Plan to address problem: IV fluids for now Nephrology consult Acute tubular necrosis (6) Hyperammonemia Current Visit: Yes Status: Acute Plan to address problem: Etiology unclear Transaminases are high Hepatitis profile (7) DVT prophylaxis Current Visit: Yes Status: Acute Plan to address problem: On heparin and GI prophylaxis
--- NOTE | 2021-06-21 18:14 | Death Summary ---
Summary - Providers Date of service: 06/21/21 Consults: 06/21/21 11:35 Consult to Physician [CONS] Stat Comment: Consulting Provider: SILVIA [facility] Physician Instructions: Reason For Exam: Acute respiratory failure, sepsis, meningitis. Attending: DIAN MCFADDEN - summary Date of admission: 06/21/21 11:46 Date of : 06/21/21 Reason for admission: Sepsis, acute respiratory failure, acute encephalopathy, VIVEK, hypotension Significant findings: Patient is hypoxic and hypotensive Poor prognosis - Final diagnosis (1) Acute respiratory failure with hypoxia Note: Final diagnosis: (2) Sepsis with hypotension Note: Final diagnosis: (3) Acute encephalopathy Note: Final diagnosis: (4) Bilateral pneumonia Note: Final diagnosis: (5) VIVEK (acute kidney injury) Note: Final diagnosis: (6) Hyperammonemia Note: Final diagnosis: (7) DVT prophylaxis Note: Final diagnosis:
[2021-06-21 18:37] LABS: Appearance,CSF Clear; White Blood Cell,CSF 0 /mm3 (1-10)
[2021-06-21 18:39] LABS: Red Blood Cell,CSF 350000 /mm3 (0-0)
[2021-06-21 21:08] LABS: Basophils CSF 0 %
== END 2021-06-21 13:09 | DRG 871 ==
LOC: ED 08:31 → CC1 11:46 → UNDOADMIN 12:36
PROVIDERS: ADMIT Internal Medicine; ATTEND Internal Medicine
PROC: 5A1935Z Respiratory Ventilation, Less than 24 Consecutive Hours (ICD-10-PCS; principal; 2021-06-21)
PROC: 0BH17EZ Insertion of Endotracheal Airway into Trachea, Via Natural or Artificial Opening (ICD-10-PCS; 2021-06-21)
PROC: 5A12012 Performance of Cardiac Output, Single, Manual (ICD-10-PCS; 2021-06-21)
PROC: 4A033R1 Measurement of Arterial Saturation, Peripheral, Percutaneous Approach (ICD-10-PCS; 2021-06-21)
PROC: 06HM33Z Insertion of Infusion Device into Right Femoral Vein, Percutaneous Approach (ICD-10-PCS; 2021-06-21)
PROC: 009U3ZX Drainage of Spinal Canal, Percutaneous Approach, Diagnostic (ICD-10-PCS; 2021-06-21)
DX: A41.9 Sepsis, unspecified organism (principal); J96.01 Acute respiratory failure with hypoxia; J18.9 Pneumonia, unspecified organism; G93.40 Encephalopathy, unspecified; N17.0 Acute kidney failure with tubular necrosis; I46.9 Cardiac arrest, cause unspecified; F17.200 Nicotine dependence, unspecified, uncomplicated; Z20.822 Contact with and (suspected) exposure to COVID-19; E72.20 Disorder of urea cycle metabolism, unspecified; Z21 Asymptomatic human immunodeficiency virus [HIV] infection status
CPT/HCPCS: 36415; 70450; 71045; 80048; 80076; 82140; 82550; 82803; 82947; 84160; 84484; 85007; 85025; 85610; 85730; 86403; 87040; 87116; 87498; 87799; 89051; 94002; G0378; J0133; J0696; J1265; J1450; J2250; J2930; J3370; J7030; J7040; J7050